=== PATIENT | female | born 1945 | race Caucasian/White ===

== ENCOUNTER 2017-12-10 22:00 | Observation (INO) ==
[2017-12-10] MEDS ORDERED: IOPAMIDOL 100 ML BOTTLE IV ONE (22:01)
[2017-12-10 23:40] LABS: Mean Cell Volume 90.8 fL (80.0-100.0); Mean Corpuscular Hemoglobin 30.8 pg (26.0-34.0); Platelet Count 362 K/mcL (140-440); RBC 3.55 M/mcL (4.00-5.20); Red Cell Distribution Width 12.4 % (11.5-14.5)
[2017-12-10 23:48] LABS: C-Reactive Protein 18.4 mg/dl (0.0-0.8)
[2017-12-11 00:02] LABS: Band Neutrophils % 4 % (0-10); Eosinophils % (Manual) 4 % (0-7); Lymphocytes % 6 % (15-49); Monocytes % (Manual) 7 % (1-12); Platelet Estimate NORMAL (NORMAL); RBC Morphology NORMAL (NORMAL); Segmented Neutrophils % 79 % (38-78)
[2017-12-11] MEDS ORDERED: cefTRIAXone 1 GM VIAL IV ONE (00:12)
[2017-12-11] MEDS ORDERED: LEVOFLOXACIN 500 MG/100 ML BAG IV ONE (00:13)
[2017-12-11 00:16] LABS: Erythrocyte Sedimentation Rate 87 mm/hr (0-20)
[2017-12-11 00:24] LABS: Appearance,Urine CLEAR; Bacteria,Urine FEW /hpf (0); Bilirubin,Urine NEG (NEG); Color,Urine YELLOW; Glucose,Urine (UA) NEGATIVE (NEG); Leukocyte Esterase,Urine 75 /uL (NEG); Mucus,Urine FEW /hpf (0); Protein,Urine NEG (NEG); Specific Gravity,Urine 1.012 (1.000-1.035); Urine Blood NEG mg/dL (<0.03); Urine Hyaline Cast 1 /lpf (0-2); Urine RBC 2 /hpf (0-1); Urine Squamous Epithelial Cell 9 /hpf (0-4); Urine Transitional Epi Cells 1 /hpf (0-2); Urine WBC 10 /hpf (0-4); Urobilinogen,Urine NEG (NEG)
--- NOTE | 2017-12-11 00:37 | Emergency Department Note ---
Recheck HPI - General Chief Complaint: Recheck/Abnormal Lab/Rx Stated Complaint: here for abdnormal labs but unable to state which Time Seen by Provider: 12/10/17 22:06 Source: patient Mode of arrival: ambulatory - History of Present Illness HPI Narrative: 72-year-old female seen 2 weeks ago on 11/24/17 arthralgia, fever sore throat. Was referred to the mechanical specialist for the workup of her arthritis. Her to mix up of scheduling she was not he waited by Dr. Nolasco. See her primary care provider Dr. Bennett the days after the visit. Running fevers her initial white count was 12,900 when first seen on 09/26/17 this was repeated today at 427 /18 and the white count had increased to 16,300 and wsr 91 and the CRP of 32.5 has been contacted and he is concerned that possibly may be an underlying infection a lot of joint pain has subsided on the patient yet got in to see the mechanical specialist she does not have appointment for another month she has been having some cough 2 weeks has been running a low-grade temperature over the last 2 weeks anywhere from 99 201 102. Her temperature today 0.1 signs show temperature of 98.1 pressures are 18 the pulse 86 blood pressure 186/76 initially pulse ox 100% - Related Data Home Medications Medication Instructions Recorded Confirmed cholecalciferol (vitamin D3) 5,000 10,000 unit PO QDAY 12/10/15 11/24/17 unit tablet cyanocobalamin (vit B-12) 2,500 2,500 mcg SUBLINGUAL QDAY 12/10/15 11/24/17 mcg sublingual tablet flaxseed oil 1,000 mg capsule 1,000 mg PO 5XD 12/10/15 11/24/17 magnesium glycinate 100 mg tablet 400 mg PO QDAY tab 12/10/15 11/24/17 Estrogens, Conjugated [Premarin] 0 mg PO DAILY 11/24/17 11/24/17 Previous Rx's Medication Instructions Recorded Atorvastatin [Lipitor] 20 mg PO HS #20 tablet 02/04/16 Allergies Allergy/AdvReac Type Severity Reaction Status Date / Time Sulfa (Sulfonamide Allergy Unknown Verified 02/04/16 14:07 Antibiotics) Review of Systems All systems ED: reviewed and negative except as stated. Constitutional: Reports: fever, chills Respiratory: Reports: cough. Denies: wheezes, phlegm Gastrointestinal: Denies: abdominal pain, nausea, vomiting Genitourinary: Denies: dysuria, urgency, frequency Musculoskeletal: Denies: back pain Integumentary: Denies: rash Neurological: Denies: headache, weakness Psychiatric: Denies: anxiety, depression Endocrine: Denies: fatigue Hematological/Lymphatic: Denies: easy bleeding Allergic/Immunologic: Denies: facial swelling Past Medical History - Past Medical History Medical history: Reports: non-contributory, GERD, hyperlipidemia, osteoporosis, other Surgical history ED: Reports: cataract, other (varicose vein stripping. Hip surgery. EGD and colonoscopy.) - Social History smoking status: Never smoker Physical Exam Limitations: language barrier General appearance: alert Head: atraumatic Eye: Present: normal appearance, PERRL ENT: normal exam, normal oropharynx, mucous membranes moist Neck: Present: normal inspection, full ROM, trachea midline Chest: Present: normal inspection. Absent: tenderness Respiratory: Present: normal lung sounds bilaterally. Absent: respiratory distress, wheezes Cardiovascular: Present: regular rate, normal rhythm Abdominal: Present: soft, normal bowel sounds. Absent: distention, tenderness, guarding, rebound, rigidity Extremities: Present: normal inspection, full ROM. Absent: tenderness Back: Present: normal inspection, full ROM. Absent: tenderness Neurological: Present: alert, oriented X3, CN II-XII intact Psychiatric: Present: normal affect, depressed Skin: Present: warm, dry Course Vital Signs Temperature 98.1 F 12/10/17 22:01 Pulse Rate 86 12/10/17 22:01 Respiratory Rate 18 12/10/17 22:01 Blood Pressure 186/76 12/10/17 22:01 Pulse Oximetry (%) 100 12/10/17 22:01 Temperature 99.2 F H 12/11/17 04:00 Pulse Rate 104 H 12/11/17 04:00 Respiratory Rate 20 12/11/17 04:00 Blood Pressure 127/60 12/11/17 04:00 Pulse Oximetry (%) 93 12/11/17 04:00 Recheck/Abnormal Lab/Rx - Lab Data Result diagrams: 12/10/17 22:40 12/10/17 22:40 Lab Results 12/10/17 12/10/17 12/10/17 Range/Units 22:40 22:40 22:40 WBC 13.5 H (4.5-11.0) K/mcL RBC 3.55 L (4.00-5.20) M/mcL Hgb 11.0 L (12.0-15.0) g/dL Hct 32.2 L (36.0-48.0) % POC Hct 31.0 L (36.0-48.0) % MCV 90.8 (80.0-100.0) fL MCH 30.8 (26.0-34.0) pg MCHC 34.0 (31.0-36.0) g/dL RDW 12.4 (11.5-14.5) % Plt Count 362 (140-440) K/mcL MPV 8.7 (7.4-10.4) fL Total Counted 100 Seg Neutrophils % 79 H (38-78) % Band Neutrophils % 4 (0-10) % Lymphocytes % 6 L (15-49) % Monocytes % (Manual) 7 (1-12) % Eosinophils % (Manual) 4 (0-7) % Platelet Estimate Normal (NORMAL) RBC Morphology Normal (NORMAL) ESR 87 H (0-20) mm/hr VBG Lactic Acid (0.5-2.2) mmol/L POC Sodium 135 (133-145) mmol/L Sodium 135 (133-145) mmol/L POC Potassium 4.0 (3.3-5.1) mmol/L Potassium 4.9 (3.3-5.1) mmol/L POC Chloride 99 (96-108) mmol/L Chloride 98 (96-108) mmol/L Carbon Dioxide 22 (22-30) mmol/L POC Total CO2 24 (22-30) mmol/L Anion Gap 15.0 (8-16) POC BUN 18 (8-23) mg/dl BUN 17 (8-23) mg/dl Creatinine 1.1 (0.6-1.1) mg/dl POC Creatinine 1.0 (0.6-1.1) mg/dl GFR Calculation 50 Glucose 173 H (70-105) mg/dL POC Glucose 182 H (70-105) mg/dL Uric Acid 4.0 (2.5-8.0) mg/dL Calcium 9.1 (8.6-10.4) mg/dl POC WB Ioniz Calcium 1.21 (1.16-1.32) mmol/L Phosphorus 3.5 (2.7-4.5) mg/dL Magnesium 2.2 (1.6-2.5) mg/dL Total Bilirubin 0.4 (0.0-1.0) mg/dL Direct Bilirubin < 0.2 (0.0-0.3) mg/dL GGT 70 H (5-36) U/L AST 67 H (0-37) U/l ALT 40 (0-40) U/l Alkaline Phosphatase 166 H (39-117) U/L Lactate Dehydrogenase 897 H (94-250) U/L C-Reactive Protein 18.4 H (0.0-0.8) mg/dl Total Protein 6.5 (5.9-8.4) gm/dL Albumin 2.9 L (3.2-5.2) gm/dL Globulin 3.6 (2.2-3.7) gm/dL Albumin/Globulin Ratio 0.8 L (1.0-2.3) Triglycerides 62 (<150) mg/dl Urine Color Urine Appearance Urine pH (5.0-9.0) Ur Specific [place] (1.000-1.035) Urine Protein (NEG) mg/dL Urine Glucose (UA) (NEG) mg/dL Urine Ketones (NEG) mg/dL Urine Occult Blood (<0.03) mg/dL Urine Nitrate (NEG) Urine Bilirubin (NEG) mg/dL Urine Urobilinogen (NEG) mg/dL Ur Leukocyte Esterase (NEG) /uL Urine RBC (0-1) /hpf Urine WBC (0-4) /hpf Ur Squamous Epith Cells (0-4) /hpf Ur Transition Epith Cell (0-2) /hpf Urine Bacteria (0) /hpf Hyaline Casts (0-2) /lpf Urine Mucus (0) /hpf Ur Culture Indicated? 12/10/17 12/10/17 Range/Units 22:45 23:20 WBC (4.5-11.0) K/mcL RBC (4.00-5.20) M/mcL Hgb (12.0-15.0) g/dL Hct (36.0-48.0) % POC Hct (36.0-48.0) % MCV (80.0-100.0) fL MCH (26.0-34.0) pg MCHC (31.0-36.0) g/dL RDW (11.5-14.5) % Plt Count (140-440) K/mcL MPV (7.4-10.4) fL Total Counted Seg Neutrophils % (38-78) % Band Neutrophils % (0-10) % Lymphocytes % (15-49) % Monocytes % (Manual) (1-12) % Eosinophils % (Manual) (0-7) % Platelet Estimate (NORMAL) RBC Morphology (NORMAL) ESR (0-20) mm/hr VBG Lactic Acid 1.4 (0.5-2.2) mmol/L POC Sodium (133-145) mmol/L Sodium (133-145) mmol/L POC Potassium (3.3-5.1) mmol/L Potassium (3.3-5.1) mmol/L POC Chloride (96-108) mmol/L Chloride (96-108) mmol/L Carbon Dioxide (22-30) mmol/L POC Total CO2 (22-30) mmol/L Anion Gap (8-16) POC BUN (8-23) mg/dl BUN (8-23) mg/dl Creatinine (0.6-1.1) mg/dl POC Creatinine (0.6-1.1) mg/dl GFR Calculation Glucose (70-105) mg/dL POC Glucose (70-105) mg/dL Uric Acid (2.5-8.0) mg/dL Calcium (8.6-10.4) mg/dl POC WB Ioniz Calcium (1.16-1.32) mmol/L Phosphorus (2.7-4.5) mg/dL Magnesium (1.6-2.5) mg/dL Total Bilirubin (0.0-1.0) mg/dL Direct Bilirubin (0.0-0.3) mg/dL GGT (5-36) U/L AST (0-37) U/l ALT (0-40) U/l Alkaline Phosphatase (39-117) U/L Lactate Dehydrogenase (94-250) U/L C-Reactive Protein (0.0-0.8) mg/dl Total Protein (5.9-8.4) gm/dL Albumin (3.2-5.2) gm/dL Globulin (2.2-3.7) gm/dL Albumin/Globulin Ratio (1.0-2.3) Triglycerides (<150) mg/dl Urine Color Yellow Urine Appearance Clear Urine pH 5.0 (5.0-9.0) Ur Specific [place] 1.012 (1.000-1.035) Urine Protein Neg (NEG) mg/dL Urine Glucose (UA) Negative (NEG) mg/dL Urine Ketones Neg (NEG) mg/dL Urine Occult Blood Neg (<0.03) mg/dL Urine Nitrate Neg (NEG) Urine Bilirubin Neg (NEG) mg/dL Urine Urobilinogen Neg (NEG) mg/dL Ur Leukocyte Esterase 75 A (NEG) /uL Urine RBC 2 H (0-1) /hpf Urine WBC 10 H (0-4) /hpf Ur Squamous Epith Cells 9 H (0-4) /hpf Ur Transition Epith Cell 1 (0-2) /hpf Urine Bacteria Few A (0) /hpf Hyaline Casts 1 (0-2) /lpf Urine Mucus Few (0) /hpf Ur Culture Indicated? No Disposition Pt seen by [employer] OPERATOR/PA only: No Clinical Impression: Pneumonia, Arthritis Disposition: Xfer As Inpt ([facility]) Condition: Undetermined
[2017-12-11] MEDS ORDERED: IBUPROFEN 600 MG TABLET PO ONE (00:59)
[2017-12-11] MEDS ORDERED: ACETAMINOPHEN 325 MG TABLET PO PRN (01:40)
[2017-12-11] MEDS: 0.9 % SODIUM CHLORIDE 1,000 ML IV SCH ×4 (02:00→22:15)
[2017-12-11 05:24] LABS: ALT/SGPT 40 U/l (0-40); Albumin 2.9 gm/dL (3.2-5.2); Albumin/Globulin Ratio 0.8 (1.0-2.3); Alkaline Phosphatase 166 U/L (39-117); Bilirubin,Direct < 0.2 mg/dL (0.0-0.3); Blood Urea Nitrogen 17 mg/dl (8-23); Gamma Glutamyl Transpeptidase 70 U/L (5-36)
--- NOTE | 2017-12-11 08:14 | XRay Report ---
HISTORY: Reason for Exam:fever FINDINGS: There is partial consolidation of the basilar segments of the left lower lobe. Superimposed upon this is a small to moderate size pleural effusion. A much smaller right-sided pleural effusion is present and there are bands of discoid atelectasis adjacent to the right diaphragm. The upper lung coleman are clear. The heart is partially obscured by the consolidation in the left lower thorax. No pulmonary vascular congestion is present. Comparison with the prior exam done on 10/22/16 shows the infiltrates and pleural effusions are new. IMPRESSION: Bilateral pleural effusions, left worse than right Partial consolidation of the left lower lobe which may be atelectasis or pneumonia. Interpreted and Authenticated by: Baudilio Hensley 12/11/17
--- NOTE | 2017-12-11 08:33 | Cat Scan Report ---
CLINICAL INFORMATION: Reason for Exam:fever COMPARISON: None. TECHNIQUE: Following injection of intravenous contrast the patient was scanned during the portal venous phase from the diaphragm through the symphysis pubis. Sagittal and coronal reformats were created.. FINDINGS: Small layering left-sided pleural effusion and there is a tiny right-sided pleural effusion. There is also a very small pericardial effusion. There is partial consolidation of the basilar segments left lower lobe and inferior segment of lingula. Bands of discoid atelectasis are present in the right middle lobe and basilar segments of the right lower lobe. Small hiatus hernia is noted. The liver and spleen are normal in size and homogeneous. No abnormality seen within the gallbladder, pancreas, adrenals or kidneys. There are several indeterminate lymph nodes in the retroperitoneum. The largest is between the mid abdominal aorta and lower pole of left kidney. It measures 1.4 x 2.1 cm. No pelvic adenopathy is present. There is no evidence of mass abscess or ascites within the abdomen or pelvis. The aorta is normal in caliber. There are scattered plaques along the wall of the aorta. Largest plaque distortion of the right renal artery. Severe disc space narrowing is present at L5-S1. There is mild levoscoliotic curvature. No lytic or blastic bone lesion are present. The uterus and ovaries are atrophic. Urinary bladder is incompletely distended and unopacified but appears normal. The bowel pattern is normal and there is no evidence of diverticulitis or appendicitis. IMPRESSION: Small bilateral pleural effusions, left greater than right Bibasilar atelectasis, left worse than right. Superimposed pneumonia may be present. Nonspecific retroperitoneal adenopathy which is more likely due to an inflammatory reaction rather than a malignancy. Interpreted and Authenticated by: Baudilio Hensley 12/11/17
[2017-12-11 10:03] LABS: Basophils # (Auto) 0 K/mcL (0.0-0.3); Basophils % (Auto) 0.1 % (0.0-2.0); Eosinophils # (Auto) 0.5 K/mcL (0.0-0.7); Eosinophils % (Auto) 5.1 % (0.0-7.0); Lymphocytes # (Auto) 0.8 K/mcL (1.5-4.8); Lymphocytes % (Auto) 7.5 % (15.5-49.0); Mean Cell Volume 92.9 fL (80.0-100.0); Mean Corpuscular HGB Conc 34.3 g/dL (31.0-36.0); Mean Corpuscular Hemoglobin 31.9 pg (26.0-34.0); Monocytes # (Auto) 0.7 K/mcL (0.1-0.9); Monocytes % (Auto) 6.3 % (1.0-12.0); Platelet Count 245 K/mcL (140-440); RBC 2.99 M/mcL (4.00-5.20)
[2017-12-11] MEDS ORDERED: ONDANSETRON 4 MG/2 ML VIAL IV PRN (10:06)
[2017-12-11] MEDS: PANTOPRAZOLE 40 MG TABLET PO SCH (10:26)
[2017-12-11] MEDS: CELECOXIB 200 MG CAPSULE PO SCH (10:26)
--- NOTE | 2017-12-11 10:29 | Internal Med History&Physical ---
Medical - H&P: HPI Patient information: Note initiated : 12/11/17 at 10:11 am Service Date, if different from initiated Date: [] Patient: Elaine Gonzalez 72 y/o F admitted on 12/11/17 for here for abdnormal labs but unable to state which. Chief Complaint: fever, joint pain, abnormal labs History of present illness: A 72-year-old active female with a history of osteoporosis, reflux with esophageal stricture, history of high cholesterol, not currently on treatment, recent history of joint inflammation who presents to ED for further evaluation after abnormal lab values and ongoing fever. She was sent the emergency department this facility on November 24 with 2 days of progressive arthralgias, myalgias and malaise. She is also having fever. Evaluation at that time showed significant joint swelling of the hands from the fingers to the wrist, as well as the feet. She is also complaining of joint pains in the knees and shoulders as well as generalized myalgias. Her white count was mildly elevated at 12,000, chemistries were generally unremarkable. She is felt to have an inflammatory arthritis, possibly related to a viral infection. She received a Medrol Dosepak, was referred to rheumatology. Patient's rheumatology appointment either was not made our couldn't be made ( now scheduled for December 20) and she followed up with primary care. In the interim she has continued to have ongoing fevers, up to 101-102 at times. She continues to have multiple joint pains, though the swelling in her hands and wrists and forearm have improved to some extent as have her feet. Still painful to walk, is painful for her to flex/extend/abduct at the shoulders , painful to bag machine tender. She discussed this with Dr. Holden, her primary care physician, last Daniel, had follow-up labs done. Results were available yesterday, including white count of 16.3, differential showing 84% neutrophils. Chemistry showed sodium low at 130, albumin low at 2.8, alkaline phosphatase elevated 166. CRP was significantly elevated at 32.5 and sedimentation rate was 91. Given her history of ongoing fevers, leukocytosis, she was referred to the emergency department last evening for further evaluation. Evaluation the emergency department revealed a history of some cough for about 2 weeks, productive of whitish mucus she tells me. She tells me she is having fevers generally to 101 at home, sometimes to 102. She is complaining of some mid chest pain, worse with coughing which she describes as "costochondritis" . She is still having pain in the joints of her hands, her wrists, her ankles, her knees and her shoulders. She also has generalized body aches. She thinks the Medrol Dosepak she received on November 24December have helped some. ABI, CCP and rheumatoid factor were drawn on Sunday but are still pending. She denies any headache. She's had some mild sinus pressure, no nasal congestion or rhinorrhea. She had no sore throat. No abdominal pain, no nausea or vomiting, no diarrhea. No dysuria. No history of coronary disease, pulmonary disease, thyroid disease, diabetes. No orthopnea, no generalized lower extremity edema. She had no rashes. No recent distant travel or exposures. After evaluation in the ED, she is found to have white count still elevated at 13,000 with 79% neutrophils and 4% bands. Chest radiograph obtained shows left lower lobe infiltrate. Also small effusions. CT of the abdomen was also obtained given elevated alkaline phosphatase and GGT to rule out an occult intra -abdominal process. That did show partial consolidation of the basilar segments of the left lower lobe and inferior segment of the lingula, atelectasis with possible superimposed pneumonia. There is also nonspecific retroperitoneal adenopathy more consistent with inflammation than malignancy. She received antibiotics in the emergency department, has been admitted for treatment of pneumonia and further evaluation. All systems: reviewed and no additional remarkable complaints except as stated Medical - H&P: PMH Medical history: Osteoporosis (Chronic) Osteoarthritis (Chronic) Hyperlipidemia (Chronic) Gastroesophageal reflux (Chronic) Esophagitis, reflux (Chronic) Chest pain (Chronic) Cataracts, bilateral (Chronic) Transient cerebral ischemia (Acute) Surgical history: History of hip surgery (Chronic) Hx of colonoscopy (Chronic) Hx of esophagogastroduodenoscopy (Chronic) Hx of varicose vein stripping (Chronic) Pertinent family history: father Congestive heart failure Diabetes mellitus mother Acute renal failure Social history: Active prior to her joint swelling. No alcohol, doesn't smoke. Lives in [place]. Medical - H&P: Meds Home Medications Medication Instructions Recorded Confirmed Type cyanocobalamin (vit B-12) 2,500 2,500 mcg SUBLINGUAL QDAY 12/10/15 12/11/17 History mcg sublingual tablet Aspirin [Aspirin EC] 2 tab PO DAILY 12/11/17 12/11/17 History C-Biest 4 Mg/Ml Cream 1 each TOPICAL QPM 12/11/17 12/11/17 History C-Biest 4 Mg/Ml Cream 2 each TOPICAL QAM 12/11/17 12/11/17 History C-Progesterone Sr 100mg Cap 100 mg PO HS 12/11/17 12/11/17 History C-Testosterone 4mg/Ml Cream 1 each TOPICAL QAM 12/11/17 12/11/17 History Osteocalm (Ca+/Vit K2/Vit D3) Cathie 1 each PO DAILY 12/11/17 12/11/17 History Prasterone (Dhea)/Calcium Carb 10 mg PO DAILY 12/11/17 12/11/17 History [Dhea Tablet] Allergies Allergy/AdvReac Type Severity Reaction Status Date / Time Sulfa (Sulfonamide Allergy Unknown Verified 02/04/16 14:07 Antibiotics) Medical - H&P: Exam - Constitutional Vitals: Temp Pulse Resp BP Pulse Ox 98.0 F 101 H 16 123/69 98 12/11/17 08:00 12/11/17 08:00 12/11/17 08:00 12/11/17 08:00 12/11/17 08:00 Exam: GENERAL: Alert, oriented, in no acute distress. Cooperative, appears younger than stated age. HEENT: Atraumatic. PERRL, conjunctiva clear, no scleral icterus. Hearing grossly intact. Oropharynx with moist mucous membranes, no lip or gum lesions, no pharyngeal erythema or exudate. Tongue midline, palate rises symmetrically. NECK: Supple without meningismus, no thyromegaly RESPIRATORY: Diminished breath sounds in the left base with faint rales. Otherwise clear without wheezes or rhonchi. Respiratory effort is unlabored. CARDIOVASCULAR: Regular rate and rhythm, no murmur gallop or rub. No peripheral edema. Carotid pulses 2+ without bruit. Pedal pulses 2+. GI: Abdomen soft, nontender, no guarding or rebound. Bowel sounds are present. No hepatosplenomegaly. LYMPHATIC: No cervical or supraclavicular lymphadenopathy MUSCULOSKELETAL: Non-pitting edema on dorsum of B hands/wrists; mildly swollen MCP joints, tender wrists with pain on passive wrist extension, flexion limited to about 45 degrees due to pain. No overlying erythema. Shoulders ROM limited by pain. No knee or ankle erythema or edema. No tenderness over the costochondral joints. Muscle mass normal. Strength testing limited by pain. SKIN: Intact, warm, dry. Skin turgor normal. NEUROLOGIC: Cranial nerves II through XII grossly intact. Sensation intact to light touch bilaterally. PSYCHIATRIC: Alert, oriented x3, normal affect, normal insight. Medical - H&P: Reslt - Labs CBC & Chem 7: 12/12/17 03:30 12/12/17 03:30 Labs: Short CBC 12/10/17 12/11/17 Range/Units 22:40 08:52 WBC 13.5 H 10.5 (4.5-11.0) K/mcL Hgb 11.0 L 9.5 L (12.0-15.0) g/dL Hct 32.2 L 27.7 L (36.0-48.0) % Plt Count 362 245 (140-440) K/mcL BMP 12/10/17 22:40 Sodium 135 Potassium 4.9 Chloride 98 Carbon Dioxide 22 BUN 17 Creatinine 1.1 Glucose 173 H Calcium 9.1 Liver Function 12/10/17 Range/Units 22:40 Total Bilirubin 0.4 (0.0-1.0) mg/dL Direct Bilirubin < 0.2 (0.0-0.3) mg/dL GGT 70 H (5-36) U/L AST 67 H (0-37) U/l ALT 40 (0-40) U/l Alkaline Phosphatase 166 H (39-117) U/L Albumin 2.9 L (3.2-5.2) gm/dL Urine 12/10/17 Range/Units 23:20 Urine Color Yellow Urine Appearance Clear Urine pH 5.0 (5.0-9.0) Ur Specific [place] 1.012 (1.000-1.035) Urine Protein Neg (NEG) mg/dL Urine Glucose (UA) Negative (NEG) mg/dL - Imaging and Cardiology Chest x-ray Status: image reviewed by me Additional comments: IMPRESSION: Bilateral pleural effusions, left worse than right Partial consolidation of the left lower lobe which may be atelectasis or pneumonia. CT scan - abdomen Status: image reviewed by me Additional comments: IMPRESSION: Small bilateral pleural effusions, left greater than right Bibasilar atelectasis, left worse than right. Superimposed pneumonia may be present. Nonspecific retroperitoneal adenopathy which is more likely due to an inflammatory reaction rather than a malignancy. Medical - H&P: A/P (1) Pneumonia Current visit: Yes Status: Acute (2) Polyarthralgia Current visit: No Status: Acute - Narrative A/P Narrative: 72-year-old otherwise healthy female presenting with little over 2 weeks of ongoing fevers, joint pains. Also having cough. Continued leukocytosis, found to have evidence of pneumonia. Pneumonia. Given her presentation, fever, leukocytosis, fine rales on exam, concern for community-acquired pneumonia. This may be superimposed upon inflammatory arthritis which may have caused some mild leukocytosis or low- grade fever. She has had blood cultures drawn, was received initial antibiotics. Pneumonia severity index is 71, however given the uncertain nature of her underlying possible rheumatologic process she will be admitted for additional treatment to assure she responds to antibiotics. Plan: Inpatient admission, continue with ceftriaxone (will not continue levofloxacin to avoid any arthropathy related side effects), add azithromycin, follow-up cultures. Polyarthralgias. Initially thought possibly reactive arthritis related to viral syndrome. Has been ongoing for about the last 2 weeks. Still with significant pain in the joints, though the edema and pain has improved to some extent. Autoimmune workup has been drawn and is pending. She has rheumatology appointment on December 20. For now we'll pursue symptomatic treatment, avoid steroids in order not to mask possible underlying rheumatologic condition until she is seen by rheumatology. Plan: Celebrex for pain. Follow-up ABI, RF, CCP. Prophylaxis: Low molecular weight heparin, PPI CODE STATUS: Full code 75 min physician time in admitting patient, reviewing records, discussing with Dr. Holden. Medical - H&P: Qual - VTE Deep Vein Thrombosis/Pulmonary Embolism Present on Admission: No
[2017-12-11] MEDS: 0.9 % SODIUM CHLORIDE 10 ML SYRINGE IV SCH ×2 (12:14→23:54)
[2017-12-11 12:50] LABS: Blood Urea Nitrogen 12 mg/dl (8-23)
[2017-12-11] MEDS: cefTRIAXone 1 GM VIAL IV SCH (13:04)
[2017-12-11] MEDS: AZITHROMYCIN 500 MG in DEXTROSE 5% IN WATER 250 ML IV SCH (13:04)
[2017-12-11] MEDS ORDERED: LEVOFLOXACIN 500 MG/100 ML BAG IV SCH (16:00)
[2017-12-12] MEDS: 0.9 % SODIUM CHLORIDE 10 ML SYRINGE IV SCH (04:52)
[2017-12-12 05:36] LABS: Mean Cell Volume 93.7 fL (80.0-100.0); Mean Corpuscular HGB Conc 33.2 g/dL (31.0-36.0); Mean Corpuscular Hemoglobin 31.1 pg (26.0-34.0); Platelet Count 252 K/mcL (140-440); RBC 2.88 M/mcL (4.00-5.20); Red Cell Distribution Width 12.9 % (11.5-14.5)
[2017-12-12 05:51] LABS: Blood Urea Nitrogen 13 mg/dl (8-23)
[2017-12-12 06:54] LABS: Band Neutrophils % 1 % (0-10); Eosinophils % (Manual) 1 % (0-7); Lymphocytes % 9 % (15-49); Monocytes % (Manual) 5 % (1-12); Platelet Estimate NORMAL (NORMAL); RBC Morphology NORMAL (NORMAL); Segmented Neutrophils % 84 % (38-78)
[2017-12-12] MEDS: 0.9 % SODIUM CHLORIDE 1,000 ML IV SCH (07:00)
[2017-12-12] MEDS: PANTOPRAZOLE 40 MG TABLET PO SCH (07:07)
[2017-12-12] MEDS ORDERED: ASPIRIN 81 MG TAB.CHEW PO SCH (09:00)
[2017-12-12] MEDS: ENOXAPARIN 40 MG/0.4 ML SYRINGE SQ SCH ×2 (09:33→11:02)
[2017-12-12] MEDS: CELECOXIB 200 MG CAPSULE PO SCH (09:34)
--- NOTE | 2017-12-12 09:38 | Discharge Summary ---
Medical - DS: Prov Patient information: Note initiated : 12/12/17 at 9:33 am Service Date, if different from initiated Date: [] Patient: Elaine Gonzalez 72 y/o F admitted on 12/11/17 for here for abdnormal labs but unable to state which. Chief Complaint: Fever, joint pain, abnormal labs Date of admission: 12/11/17 02:10 Discharge date: 12/12/17 Primary care physician: Diaz Holden Attending physician on admission: Kiarra Beckham Consults: 12/11/17 01:26 Consult to Physician [CONS] Stat Comment: Consulting Provider: Kiarra Beckham Reason For Exam: Physician to Consult Attending physician on discharge: Kiarra Beckham Medical - DS: Meds - Discharge Medications Prescriptions: Azithromycin [Zithromax] 250 mg PO DAILY #4 tab Cefdinir 300 mg PO BID #16 cap Celecoxib [Celebrex] 200 mg PO BID #30 cap Active and Home Medications: Home Medications cyanocobalamin (vit B-12) 2,500 mcg sublingual tablet 2,500 mcg SUBLINGUAL QDAY 12/10/15 [History Confirmed 12/11/17 Last Taken 12/10/17] Aspirin [Aspirin EC] 2 tab PO DAILY 12/11/17 [History Confirmed 12/11/17 Last Taken Unknown] C-Biest 4 Mg/Ml Cream 1 each TOPICAL QPM 12/11/17 [History Confirmed 12/11/17 Last Taken Unknown] C-Biest 4 Mg/Ml Cream 2 each TOPICAL QAM 12/11/17 [History Confirmed 12/11/17 Last Taken Unknown] C-Progesterone Sr 100mg Cap 100 mg PO HS 12/11/17 [History Confirmed 12/11/17 Last Taken Unknown] C-Testosterone 4mg/Ml Cream 1 each TOPICAL QAM 12/11/17 [History Confirmed 12/11 Last Taken Unknown] Osteocalm (Ca+/Vit K2/Vit D3) Cathie 1 each PO DAILY 12/11/17 [History Confirmed Last Taken Unknown] Prasterone (Dhea)/Calcium Carb [Dhea Tablet] 10 mg PO DAILY 12/11/17 [History Confirmed 12/11/17 Last Taken Unknown] Medical - DS: Hosp Hospital course: A 72-year-old active female with a history of osteoporosis, reflux with esophageal stricture, history of high cholesterol, not currently on treatment, recent history of joint inflammation who presents to ED for further evaluation after abnormal lab values and ongoing fever. She was sent the emergency department this facility on November 24 with 2 days of progressive arthralgias, myalgias and malaise. She is also having fever. Evaluation at that time showed significant joint swelling of the hands from the fingers to the wrist, as well as the feet. She is also complaining of joint pains in the knees and shoulders as well as generalized myalgias. Her white count was mildly elevated at 12,000, chemistries were generally unremarkable. She is felt to have an inflammatory arthritis, possibly related to a viral infection. She received a Medrol Dosepak, was referred to rheumatology. Patient's rheumatology appointment either was not made our couldn't be made ( now scheduled for December 20) and she followed up with primary care. In the interim she has continued to have ongoing fevers, up to 101-102 at times. She continues to have multiple joint pains, though the swelling in her hands and wrists and forearm have improved to some extent as have her feet. 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 She discussed this with Dr. Holden, her primary care physician, last Sunday, had follow-up labs done. Results were available yesterday, including white count of 16.3, differential showing 84% neutrophils. Chemistry showed sodium low at 130, albumin low at 2.8, alkaline phosphatase elevated 166. CRP was significantly elevated at 32.5 and sedimentation rate was 91. Given her history of ongoing fevers, leukocytosis, she was referred to the emergency department last evening for further evaluation. Evaluation the emergency department revealed a history of some cough for about 2 weeks, productive of whitish mucus she tells me. She tells me she is having fevers generally to 101 at home, sometimes to 102. She is complaining of some mid chest pain, worse with coughing which she describes as "costochondritis" . She is still having pain in the joints of her hands, her wrists, her ankles, her knees and her shoulders. She also has generalized body aches. She thinks the Medrol Dosepak she received on November 24December have helped some. ABI, CCP and rheumatoid factor were drawn on Sunday but are still pending. She denies any headache. She's had some mild sinus pressure, no nasal congestion or rhinorrhea. She had no sore throat. No abdominal pain, no nausea or vomiting, no diarrhea. No dysuria. No history of coronary disease, pulmonary disease, thyroid disease, diabetes. No orthopnea, no generalized lower extremity edema. She had no rashes. No recent distant travel or exposures. After evaluation in the ED, she is found to have white count still elevated at 13,000 with 79% neutrophils and 4% bands. Chest radiograph obtained shows left lower lobe infiltrate. Also small effusions. CT of the abdomen was also obtained given elevated alkaline phosphatase and GGT to rule out an occult intra -abdominal process. That did show partial consolidation of the basilar segments of the left lower lobe and inferior segment of the lingula, atelectasis with possible superimposed pneumonia. There is also nonspecific retroperitoneal adenopathy more consistent with inflammation than malignancy. She received antibiotics in the emergency department, has been admitted for treatment of pneumonia and further evaluation. 12/12 Has done well overnight. Tmax was 99.0 yesterday at noon. Thinks the celecoxib may have helped the arthralgias to some extent. Tolerating antibiotics. Cough mildly productive with some whitish sputum. CT scan of the abdomen, and upper chest cut shows small effusions, not enough fluid for thoracentesis. Blood cultures are without growth. Plan to discharge home, continue course of cefdinir plus azithromycin for community-acquired pneumonia, we'll provide a prescription for 15 days of celecoxib. Follow-up primary care late this week/early next week and with rheumatology on 12/20/17 as scheduled. Discharge diagnosis: Community acquired pneumonia Secondary discharge diagnosis: Polyarthralgia - Time Spent with Patient Total time spent providing and/or coordinating discharge services: Medical - DS: Exam - Constitutional Vitals: Vital Signs Temp Pulse Resp BP Pulse Ox 12/12/17 07:39 98.0 F 103 H 20 142/80 96 12/12/17 04:00 98.7 F 112 H 20 139/72 91 12/11/17 23:35 98.7 F 105 H 20 126/75 94 12/11/17 20:00 98.4 F 88 18 128/68 97 12/11/17 16:00 98.3 F 94 H 18 119/75 96 12/11/17 12:00 99.0 F H 104 H 16 125/65 96 Intake and Output 12/11/17 12/12/17 12/12/17 21:59 05:59 13:59 Intake Total 800 / 800 1075 / 1075 875 / 875 Output Total 300 / 300 Balance 800 / 800 1075 / 1075 575 / 575 Intake: IV 1000 / 1000 875 / 875 Sodium Chloride 0.9% 1,000 ml @ 1000 / 1000 875 / 875 100 mls/hr IV .Q10H [facility] Rx#: [id number] Oral 800 / 800 75 / 75 Output: Void Amount 300 / 300 Other: Meal Dinner Percent of Meal Consumed 100% Feeding Ability Assist with Tray Set Up # Voids 1 1 Weight 135 lb Additional comments: General: In no acute distress Chest: Fine left basilar rales, breath sounds mildly diminished throughout both lung [place], respirations are unlabored, no wheezes or rhonchi. Cardiovascular: Regular, no murmur, no edema Abdomen: Soft, nontender Neuro: Alert, oriented, moves all extremities equally, nonfocal Medical - DS: Data Labs on day of discharge: Labs from last 24 hours 12/12/17 12/12/17 12/11/17 03:30 03:30 08:52 WBC 11.8 H RBC 2.88 L Hgb 9.0 L Hct 27.0 L MCV 93.7 MCH 31.1 MCHC 33.2 RDW 12.9 Plt Count 252 MPV 8.9 Gran % Lymph % (Auto) [place] % (Auto) Eos % (Auto) Baso % (Auto) Gran # Lymph # (Auto) [place] # (Auto) Eos # (Auto) Baso # (Auto) Total Counted 100 Seg Neutrophils % 84 H Band Neutrophils % 1 Lymphocytes % 9 L Monocytes % (Manual) 5 Eosinophils % (Manual) 1 Platelet Estimate Normal RBC Morphology Normal Sodium 138 135 Potassium 4.4 3.8 Chloride 105 98 Carbon Dioxide 22 23 Anion Gap 11.0 14.0 BUN 13 12 Creatinine 0.8 0.9 GFR Calculation 74 64 Glucose 98 155 H Calcium 8.3 L 8.3 L 12/11/17 08:52 WBC 10.5 RBC 2.99 L Hgb 9.5 L Hct 27.7 L MCV 92.9 MCH 31.9 MCHC 34.3 RDW 13.0 Plt Count 245 MPV 8.6 Gran % 81.0 H Lymph % (Auto) 7.5 L [place] % (Auto) 6.3 Eos % (Auto) 5.1 Baso % (Auto) 0.1 Gran # 8.5 H Lymph # (Auto) 0.8 L [place] # (Auto) 0.7 Eos # (Auto) 0.5 Baso # (Auto) 0 Total Counted Seg Neutrophils % Band Neutrophils % Lymphocytes % Monocytes % (Manual) Eosinophils % (Manual) Platelet Estimate RBC Morphology Sodium Potassium Chloride Carbon Dioxide Anion Gap BUN Creatinine GFR Calculation Glucose Calcium Preliminary micro results at discharge 12/10/17 23:20 Urine Culture - Preliminary Urine - Clean Void Mid-Stream 12/10/17 23:30 Blood Culture - Preliminary Blood 12/10/17 22:45 Blood Culture - Preliminary Blood - Impressions Chest x-ray IMPRESSION: Bilateral pleural effusions, left worse than right Partial consolidation of the left lower lobe which may be atelectasis or pneumonia. CT scan - abdomen IMPRESSION: Small bilateral pleural effusions, left greater than right Bibasilar atelectasis, left worse than right. Superimposed pneumonia may be present. Nonspecific retroperitoneal adenopathy which is more likely due to an inflammatory reaction rather than a malignancy. Medical - DS: A/P - Patient/Caregiver Discharge Instructions Activity: increase activity as tolerated Diet: Regular Diet Prescriptions: Azithromycin [Zithromax] 250 mg PO DAILY #4 tab Cefdinir 300 mg PO BID #16 cap Celecoxib [Celebrex] 200 mg PO BID #30 cap - Problem Maintenance (1) Pneumonia Status: Acute Qualifiers: Pneumonia type: due to unspecified organism Laterality: left Lung location: lower lobe of lung Qualified Code(s): J18.1 - Lobar pneumonia, unspecified organism (2) Polyarthralgia Status: Acute - Follow up Plan Follow up with: Diaz Holden MD [Primary Care Provider] - (3-5 days) Jeison Nolasco MD [Physician] - 12/20/17 (as scheduled) Disposition: Home, Self-Care Prognosis: Undetermined Rehab Potential: Undetermined Overall status at discharge: patient is not back to baseline Medical - DS: Qual - VTE Deep Vein Thrombosis/Pulmonary Embolism Present on Admission: No
[2017-12-12] MEDS: cefTRIAXone 1 GM VIAL IV SCH (10:49)
[2017-12-12] MEDS: AZITHROMYCIN 500 MG in DEXTROSE 5% IN WATER 250 ML IV SCH (10:49)
== END 2017-12-12 14:00 | disposition home or self-care (01) ==
LOC: ED 22:00 → INTOOBSV 12-11 02:10 → ICU 12-11 02:10 → MEDSUR 12-12 06:40
PROVIDERS: ADMIT Internal Medicine; ATTEND Internal Medicine